=== PATIENT | female | born 1990 | race Two or more races ===

== ENCOUNTER 2021-09-30 09:24 | Outpatient (CLI) | payer OTHER | END 2021-09-30 10:37 | disposition home or self-care (01) | LOC: PRENATAL 09:24 | PROVIDERS: ATTEND Obstetrics & Gynecology Maternal & Fetal Medicine | DX: O35.0XX1 Maternal care for (suspected) central nervous system malformation in fetus, fetus 1 (principal); O35.3XX1 Maternal care for (suspected) damage to fetus from viral disease in mother, fetus 1; O98.512 Other viral diseases complicating pregnancy, second trimester; O35.1XX1 Maternal care for (suspected) chromosomal abnormality in fetus, fetus 1; O44.02 Complete placenta previa NOS or without hemorrhage, second trimester; Z36.89 Encounter for other specified antenatal screening; Z3A.18 18 weeks gestation of pregnancy ==

== ENCOUNTER 2021-12-30 08:53 | Outpatient (CLI) | payer OTHER | END 2021-12-30 10:45 | disposition home or self-care (01) | LOC: PRENATAL 08:53 | PROVIDERS: ATTEND Obstetrics & Gynecology Maternal & Fetal Medicine | DX: O26.849 Uterine size-date discrepancy, unspecified trimester (principal); O34.218 Maternal care for other type scar from previous cesarean delivery; O34.40 Maternal care for other abnormalities of cervix, unspecified trimester; Z3A.32 32 weeks gestation of pregnancy ==

== ENCOUNTER 2022-02-22 12:42 | Inpatient (IN) | payer OTHER ==
[~2022-02-22] VITALS: Ht 167.6 cm; Wt 77.1 kg
[2022-02-22] MEDS ORDERED: PRENATAL TABLE1 EAC3 PO (12:44)
== END 2022-02-24 12:47 | disposition home or self-care (01) | DRG 807 ==
LOC: LDR 12:42 → OB/GYN 18:02
PROVIDERS: ADMIT Student in an Organized Health Care Education/Training Program; ATTEND Student in an Organized Health Care Education/Training Program
PROC: 10E0XZZ Delivery of Products of Conception, External Approach (ICD-10-PCS; principal; 2022-02-22)
PROC: 4A1HXCZ Monitoring of Products of Conception, Cardiac Rate, External Approach (ICD-10-PCS; 2022-02-22)
DX: O80 Encounter for full-term uncomplicated delivery (principal); Z37.0 Single live birth; Z3A.40 40 weeks gestation of pregnancy; Z20.822 Contact with and (suspected) exposure to COVID-19

== ENCOUNTER 2022-12-29 06:19 | Day surgery (SDC) | payer OTHER ==
[~2022-12-29 06:19] MED LIST: PRENATAL TABLE1 EAC3 PO
== END 2022-12-29 12:00 | disposition home or self-care (01) ==
LOC: CIR.AMB 06:19
PROVIDERS: ATTEND Student in an Organized Health Care Education/Training Program
DX: Z30.2 Encounter for sterilization (principal); Z20.822 Contact with and (suspected) exposure to COVID-19